=== PATIENT | female | born 1995 | race American Indian/Alaskan Native ===

== ENCOUNTER 2020-11-06 08:22 | Emergency (ER) | payer SELFPAY ==
[2020-11-06 10:13] LABS: HCG Qualitative,Urine Positive (Negative)
[2020-11-06 10:15] LABS: Bilirubin,Urine NEG (Negative); Blood,Urine NEG (Negative); Color,Urine Yellow (Yellow); Mucus,Urine 3+ /HPF; Protein,Urine <15 mg/dL mg/dL (Negative); Urobilinogen,Urine < 2.0 mg/dL (<2.0)
--- NOTE | 2020-11-06 10:24 | Emergency Department Report ---
HPI - General Chief Complaint: Urogenital-Female Time Seen by Provider: 11/06/20 10:02 - HPI HPI: This is a 25-year-old -[place] female who presents to the emergency department with complaint of a 2-week history of some left lateral lower back pain. Patient says this is also associated with some increased urinary frequency and some mild urinary discomfort. The patient says that when she has had this issue in the past it has usually been from a UTI. She denies any fever, pelvic pain, abdominal pain, vaginal bleeding or discharge, nausea and vomiting. Patient says that her last menstrual cycle was 10/09/2020. The patient left a urine sample prior to my shift starting and my initial evaluation of this patient. The patient's qualitative urine test came back positive. The patient seems surprised as she is just now due for her next menstrual cycle. With this the patient is a with 2 live children and one previous miscarriage. Patient denies any vaginal bleeding or discharge, pelvic or abdominal pain. However her back pain is lateral left lumbar. No CVA tenderness, but with this positive test we will evaluate her to make sure there is no signs of any ectopic . ED Past Medical Hx - Past Medical History Previous Medical History?: No - Surgical History Past Surgical History?: No - Social History Smoking Status: Never Smoker ED Review of Systems ROS: Stated complaint: CHEST/BACK PAIN Other details as noted in HPI Comment: All other systems reviewed and negative Constitutional: denies: chills, fever Eyes: denies: eye pain, vision change ENT: denies: throat pain Respiratory: denies: cough, shortness of breath Cardiovascular: denies: chest pain, palpitations Gastrointestinal: denies: abdominal pain, vomiting Genitourinary: dysuria, frequency Musculoskeletal: back pain. denies: arthralgia Skin: denies: rash, lesions Neurological: denies: headache, weakness Physical Exam - Physical Exam Vital Signs: Vital Signs 11/06/20 08:27 Temperature 98.4 F Pulse Rate 83 Respiratory 20 Rate Blood Pressure 131/83 O2 Sat by Pulse 100 Oximetry Physical Exam: GENERAL: The patient is well-developed well-nourished. HENT: Normocephalic. Atraumatic. Patient has moist mucous membranes. EYES: Extraocular motions are intact. NECK: Supple. Trachea is midline. CHEST/LUNGS: Clear to auscultation. There is no respiratory distress noted. HEART/CARDIOVASCULAR: Regular. There is no tachycardia. ABDOMEN: Abdomen is soft, nontender. Patient has normal bowel sounds. There is no abdominal distention. SKIN: Skin is warm and dry. NEURO: The patient is awake, alert, and oriented. The patient is cooperative. Normal speech. MUSCULOSKELETAL: There is no tenderness or deformity. There is no limitation range of motion. BACK: No midline thoracic or lumbar tenderness to palpation. No CVA tenderness to palpation. Unable to reproduce the left lateral lumbar tenderness to palpation. ED Course Vital Signs 11/06/20 08:27 Temperature 98.4 F Pulse Rate 83 Respiratory 20 Rate Blood Pressure 131/83 O2 Sat by Pulse 100 Oximetry - Consultations Consultation #1: 11/06/20 11:13 I spoke with the radiologist, Dr. Alicia, and the /transvaginal ultrasound shows concern for a left adnexal ectopic . WASHER REPAIRMAN on-call has been paged. 11/06/20 12:[address] [facility], who is the WASHER REPAIRMAN on-call. After reviewing the patient's presentation, vital signs, lab results and imaging results, he says that the patient should be treated with methotrexate. The [facility] will need to follow-up with [facility] for an appointment on Saturday, 5 days from now, for a repeat beta-hCG. ED Medical Decision Making - Lab Data Result diagrams: 11/06/20 11:25 11/06/20 11:25 Lab Results 11/06/20 11/06/20 11/06/20 Range/Units 08:55 10:52 11:25 WBC 7.6 (4.5-11.0) K/mm3 RBC 3.66 (3.65-5.03) M/mm3 Hgb 11.7 (10.1-14.3) gm/dl Hct 34.4 (30.3-42.9) % MCV 94 (79-97) fl MCH 32 (28-32) pg MCHC 34 (30-34) % RDW 15.1 (13.2-15.2) % Plt Count 271 (140-440) K/mm3 Lymph % (Auto) 21.6 (13.4-35.0) % [place] % (Auto) 6.8 (0.0-7.3) % Eos % (Auto) 2.6 (0.0-4.3) % Baso % (Auto) 0.7 (0.0-1.8) % Lymph # (Auto) 1.6 (1.2-5.4) K/mm3 [place] # (Auto) 0.5 (0.0-0.8) K/mm3 Eos # (Auto) 0.2 (0.0-0.4) K/mm3 Baso # (Auto) 0.1 (0.0-0.1) K/mm3 Seg Neutrophils % 68.3 (40.0-70.0) % Seg Neutrophils # 5.2 (1.8-7.7) K/mm3 Sodium (137-145) mmol/L Potassium (3.6-5.0) mmol/L Chloride (98-107) mmol/L Carbon Dioxide (22-30) mmol/L Anion Gap mmol/L BUN (7-17) mg/dL Creatinine (0.6-1.2) mg/dL Estimated GFR ml/min BUN/Creatinine Ratio % Glucose (65-100) mg/dL Calcium (8.4-10.2) mg/dL Total Bilirubin (0.1-1.2) mg/dL AST (5-40) units/L ALT (7-56) units/L Alkaline Phosphatase (35-129) units/L Total Protein (6.3-8.2) g/dL Albumin (3.9-5) g/dL Albumin/Globulin Ratio % HCG, Quant 350.8 H (0-4) mIU/mL Urine Color Yellow (Yellow) Urine Turbidity Clear (Clear) Urine pH 6.0 (5.0-7.0) Ur Specific D Lo 1.013 (1.003-1.030) Urine Protein <15 mg/dl (Negative) mg/dL Urine Glucose (UA) Neg (Negative) mg/dL Urine Ketones Neg (Negative) mg/dL Urine Blood Neg (Negative) Urine Nitrite Neg (Negative) Ur Reducing Substances Not Reportable Urine Bilirubin Neg (Negative) Urine Ictotest Not Reportable Urine Urobilinogen < 2.0 (<2.0) mg/dL Ur Leukocyte Esterase Tr (Negative) Urine WBC (Auto) 5.0 (0.0-6.0) /HPF Urine RBC (Auto) 3.0 (0.0-6.0) /HPF U Epithel Cells (Auto) 7.0 (0-13.0) /HPF Urine Mucus 3+ /HPF Urine HCG, Qual Positive A (Negative) Blood Type Ord Rhogam Gestat Weeks WEEKS 11/06/20 11/06/20 Range/Units 11:25 11:25 WBC (4.5-11.0) K/mm3 RBC (3.65-5.03) M/mm3 Hgb (10.1-14.3) gm/dl Hct (30.3-42.9) % MCV (79-97) fl MCH (28-32) pg MCHC (30-34) % RDW (13.2-15.2) % Plt Count (140-440) K/mm3 Lymph % (Auto) (13.4-35.0) % [place] % (Auto) (0.0-7.3) % Eos % (Auto) (0.0-4.3) % Baso % (Auto) (0.0-1.8) % Lymph # (Auto) (1.2-5.4) K/mm3 [place] # (Auto) (0.0-0.8) K/mm3 Eos # (Auto) (0.0-0.4) K/mm3 Baso # (Auto) (0.0-0.1) K/mm3 Seg Neutrophils % (40.0-70.0) % Seg Neutrophils # (1.8-7.7) K/mm3 Sodium 140 (137-145) mmol/L Potassium 3.8 (3.6-5.0) mmol/L Chloride 106.3 (98-107) mmol/L Carbon Dioxide 21 L (22-30) mmol/L Anion Gap 17 mmol/L BUN 8 (7-17) mg/dL Creatinine 0.7 (0.6-1.2) mg/dL Estimated GFR > 60 ml/min BUN/Creatinine Ratio 11 % Glucose 86 (65-100) mg/dL Calcium 8.6 (8.4-10.2) mg/dL Total Bilirubin 0.50 (0.1-1.2) mg/dL AST 13 (5-40) units/L ALT 10 (7-56) units/L Alkaline Phosphatase 63 (35-129) units/L Total Protein 7.1 (6.3-8.2) g/dL Albumin 4.5 (3.9-5) g/dL Albumin/Globulin Ratio 1.7 % HCG, Quant (0-4) mIU/mL Urine Color (Yellow) Urine Turbidity (Clear) Urine pH (5.0-7.0) Ur Specific D Lo (1.003-1.030) Urine Protein (Negative) mg/dL Urine Glucose (UA) (Negative) mg/dL Urine Ketones (Negative) mg/dL Urine Blood (Negative) Urine Nitrite (Negative) Ur Reducing Substances Urine Bilirubin (Negative) Urine Ictotest Urine Urobilinogen (<2.0) mg/dL Ur Leukocyte Esterase (Negative) Urine WBC (Auto) (0.0-6.0) /HPF Urine RBC (Auto) (0.0-6.0) /HPF U Epithel Cells (Auto) (0-13.0) /HPF Urine Mucus /HPF Urine HCG, Qual (Negative) Blood Type A POSITIVE Ord Rhogam Gestat Weeks Rh pos WEEKS - Radiology Data Radiology results: report reviewed ULTRASOUND OBSTETRIC INDICATION / CLINICAL INFORMATION: , low back pain. Clinical Gestational Age (GA): 4 weeks TECHNIQUE: Transabdominal. Transvaginal COMPARISON: None available. FINDINGS: Uterus: The uterus is mildly enlarged measuring 8.3 x 6.1 x 6.2 cm. Endometrium is thickened measuring 2.9 cm. At this time there is no gestational sac present within the uterus. ADNEXA: The right ovary has a normal sonographic appearance. Adjacent to a normal-appearing left ovary, there is a hypoechoic mass with central cystic area. The mass measures 2.3 x 1.2 cm. The central cystic area measures 5 mm. There is peripheral ring of vascularity surrounding the mass. This is concerning for the possibility of left adnexal ectopic . Gestational age would be 5 weeks 2 days if this were to be an ectopic . FREE FLUID: Small amount of uncomplicated fluid is present in the pelvis,visualized in both adnexa. ADDITIONAL FINDINGS: None. IMPRESSION: 1. Left adnexal mass suspicious for ectopic . Please correlate with physical exam. There is small amount of free fluid within the pelvis. 2. No evidence of gestational sac within the uterus at this time. - Medical Decision Making This patient presented to the emergency department with a complaint of left lateral lower back pain over the past 2 weeks. The patient had a urinalysis done through triage that did not show any urinary tract infection but did show a positive qualitative level. The patient was sent for a transvaginal/ ultrasound that came back showing concern for an ectopic . There was no sign of intrauterine . There was a left adnexal mass with increased vascular markings. There was a small amount of uncomplicated free fluid that radiology did not feel was consistent with blood. The patient's labs were otherwise unremarkable including CBC, CMP. Beta hCG came back at about 350. Patient has a positive blood type. I spoke with the WASHER REPAIRMAN on-call 2 different times during this patient's ED course in which we reviewed the patient's presentation, physical exam, labs and ultrasound findings. The decision was made to treat this ectopic with methotrexate. All of the lab and imaging results were discussed with the patient. I discussed what an ectopic is with the patient. I discussed methotrexate and why this is the preferred treatment at this gestational age and given her lab values and ultrasound findings. I remain with the patient until all questions were answered and the patient verbalized understanding and agreed to treatment with the methotrexate. The patient was given outpatient referral for Dr. Cardenas and [facility] WASHER REPAIRMAN. She is to have a repeat beta-hCG on Saturday and then on the subsequent Saturday. I n the meantime, the patient will return to the closest emergency department with any worsening of her symptoms, any concerns, or with acute distress. Critical Care Time: Yes Critical care time in (mins) excluding proc time.: 31 Critical care attestation.: If time is entered above; I have spent that time in minutes in the direct care of this critically ill patient, excluding procedure time. Critical care time was spent on this patient in doing her initial evaluation, multiple reevaluations, ordering and interpretation of labs and imaging, multiple discussions with the WASHER REPAIRMAN on-call, multiple discussions with the patient, and ordering of the methotrexate for treatment of the ectopic . Critical Care Time: 31 minutes ED Disposition Clinical Impression: Ectopic Qualifiers: Location of ectopic : tubal Intrauterine status: without intrauterine Laterality: left Qualified Code(s): O00.102 - Left tubal without intrauterine Disposition: TO HOME OR SELFCARE Is pt being admited?: No Condition: Stable Instructions: Methotrexate Treatment for an Ectopic , Care After, Ectopic , Methotrexate Treatment for an Ectopic Additional Instructions: I have given you a referral for Dr. Cardenas, the WASHER REPAIRMAN who was consulted during y our emergency department visit. Please call tomorrow to make an appointment for this coming Saturday. You will need a repeat beta-hCG, hormone level, on Saturday and then again the subsequent/following Saturday. I have given you discharge instructions regarding an ectopic , and the medication methotrexate that you were given in the emergency department. Please return to the emergency department with any heavy vaginal bleeding, severe abdominal or pelvic pain, worsening of your current symptoms, new or concerning symptoms not addressed during this emergency department visit, or with any acute distress. Referrals: MAGEN CARDENAS MD [Staff Physician] - 11/11/20 (Call Saturday for an appointmen on Saturday. You will need a repeat BHCG ( Hormone Level).) Forms: Methotrexate D/C Instructions Time of Disposition: 13:10
--- NOTE | 2020-11-06 11:13 | Ultrasound Report ---
ULTRASOUND OBSTETRIC INDICATION / CLINICAL INFORMATION: , low back pain. Clinical Gestational Age (GA): 4 weeks TECHNIQUE: Transabdominal. Transvaginal COMPARISON: None available. FINDINGS: Uterus: The uterus is mildly enlarged measuring 8.3 x 6.1 x 6.2 cm. Endometrium is thickened measurin g 2.9 cm. At this time there is no gestational sac present within the uterus. ADNEXA: The right ovary has a normal sonographic appearance. Adjacent to a normal-appearing left ovary, there is a hypoechoic mass with central cystic area. The m ass measures 2.3 x 1.2 cm. The central cystic area measures 5 mm. There is peripheral ring of vascula rity surrounding the mass. This is concerning for the possibility of left adnexal ectopic . Gestational age would be 5 weeks 2 days if this were to be an ectopic . FREE FLUID: Small amount of uncomplicated fluid is present in the pelvis,visualized in both adnexa. ADDITIONAL FINDINGS: None. IMPRESSION: 1. Left adnexal mass suspicious for ectopic . Please correlate with physical exam. There is small amount of free fluid within the pelvis. 2. No evidence of gestational sac within the uterus at this time. CRITICAL RESULT: Time of Discovery: 1000 hours TRAIN STARTER Time of Communication: 1005 hrs TRAIN STARTER Licensed Practitioner Receiving Report: Dr. [place] Read Back Performed: Yes. Signer Name: Pilar Alicia MD Signed: 11/06/2020 11:08 AM Workstation Name: [id number]
--- NOTE | 2020-11-06 11:13 | Ultrasound Report ---
ULTRASOUND OBSTETRIC INDICATION / CLINICAL INFORMATION: , low back pain. Clinical Gestational Age (GA): 4 weeks TECHNIQUE: Transabdominal. Transvaginal COMPARISON: None available. FINDINGS: Uterus: The uterus is mildly enlarged measuring 8.3 x 6.1 x 6.2 cm. Endometrium is thickened measurin g 2.9 cm. At this time there is no gestational sac present within the uterus. ADNEXA: The right ovary has a normal sonographic appearance. Adjacent to a normal-appearing left ovary, there is a hypoechoic mass with central cystic area. The m ass measures 2.3 x 1.2 cm. The central cystic area measures 5 mm. There is peripheral ring of vascula rity surrounding the mass. This is concerning for the possibility of left adnexal ectopic . Gestational age would be 5 weeks 2 days if this were to be an ectopic . FREE FLUID: Small amount of uncomplicated fluid is present in the pelvis,visualized in both adnexa. ADDITIONAL FINDINGS: None. IMPRESSION: 1. Left adnexal mass suspicious for ectopic . Please correlate with physical exam. There is small amount of free fluid within the pelvis. 2. No evidence of gestational sac within the uterus at this time. CRITICAL RESULT: Time of Discovery: 1000 hours DEBUG TECHNICIAN Time of Communication: 1005 hrs DEBUG TECHNICIAN Licensed Practitioner Receiving Report: Dr. [place] Read Back Performed: Yes. Signer Name: Pilar Alicia MD Signed: 11/06/2020 11:08 AM Workstation Name: [id number]
[2020-11-06 11:44] LABS: Basophils # (Auto) 0.1 K/mm3 (0.0-0.1); Basophils % (Auto) 0.7 % (0.0-1.8); Eosinophils # (Auto) 0.2 K/mm3 (0.0-0.4); Eosinophils % (Auto) 2.6 % (0.0-4.3); Hematocrit 34.4 % (30.3-42.9); Hemoglobin 11.7 gm/dl (10.1-14.3); Lymphocytes # (Auto) 1.6 K/mm3 (1.2-5.4); Lymphocytes % (Auto) 21.6 % (13.4-35.0); Mean Corpuscular HGB Conc 34 % (30-34); Mean Corpuscular Volume 94 fl (79-97); Monocytes # (Auto) 0.5 K/mm3 (0.0-0.8); Monocytes % (Auto) 6.8 % (0.0-7.3); Platelet Count 271 K/mm3 (140-440); Red Blood Count 3.66 M/mm3 (3.65-5.03); Red Cell Distribution Width 15.1 % (13.2-15.2)
[2020-11-06 12:30] LABS: Alanine Aminotransferase 10 units/L (7-56); Albumin 4.5 g/dL (3.9-5); Blood Urea Nitrogen 8 mg/dL (7-17); Calcium 8.6 mg/dL (8.4-10.2); Hemolysis Index 2
[2020-11-06 12:34] LABS: BUN/Creatinine Ratio 11
[2020-11-06 14:13] VITALS: BP 113/86
== END 2020-11-06 14:13 | disposition home or self-care (01) ==
LOC: ED 08:22
DX: O00.102 Left tubal pregnancy without intrauterine pregnancy (principal); Z91.018 Allergy to other foods; Z3A.01 Less than 8 weeks gestation of pregnancy
CPT/HCPCS: 36415; 76801; 76817; 80053; 81001; 81025; 84702; 85025; 86900; 86901; 96372; 99284; J9260